=== PATIENT | male | born 1975 | race Caucasian/White ===

== ENCOUNTER → 2016-11-26 | Day surgery (SDC) | payer BC | LOC: MSO 12:02 | CPT/HCPCS: 14228; A4649 ==

== ENCOUNTER → 2020-09-05 | Outpatient (CLI) | payer BC | LOC: RAD 12:48 | DX: N20.0 Calculus of kidney (principal); N40.0 Benign prostatic hyperplasia without lower urinary tract symptoms ==

== ENCOUNTER 2022-03-25 13:52 | Emergency (ER) | payer BC ==
[~2022-03-25] VITALS: Ht 193 cm; Wt 100.0 kg
[2022-03-25 15:10] VITALS: BP 131/87
== END 2022-03-25 15:10 | disposition home or self-care (01) ==
LOC: ED 13:52
DX: S61.011A Laceration without foreign body of right thumb without damage to nail, initial encounter (principal); Z28.310 Unvaccinated for COVID-19; Z23 Encounter for immunization; W26.0XXA Contact with knife, initial encounter
CPT/HCPCS: 90715